=== PATIENT | male | born 1965 | race Caucasian/White ===

== ENCOUNTER 2017-12-05 12:32 | Emergency (ER) | payer OTHER ==
[~2017-12-05] VITALS: Ht 175.3 cm; Wt 92.8 kg
[2017-12-05] MEDS ORDERED: LISINOPRIL5 MG PO (13:00)
[2017-12-05] MEDS ORDERED: METFORMIN HCL500 MG PO (13:00)
[2017-12-05] MEDS ORDERED: OMEPRAZOLE40 M1 PO (13:01)
[2017-12-05] MEDS ORDERED: MECLIZINE HCL25 MG PO (15:39)
[2017-12-05 15:47] VITALS: BP 134/94
== END 2017-12-05 15:48 | disposition home or self-care (01) ==
LOC: RME 12:32 → EME 12:32 → RME 15:48
DX: R42 Dizziness and giddiness (principal); E11.9 Type 2 diabetes mellitus without complications; Z87.891 Personal history of nicotine dependence
CPT/HCPCS: 70450; 99281; 99284